=== PATIENT | female | born 1985 | race Caucasian/White ===

== ENCOUNTER 2018-11-21 16:22 | Emergency (ER) | payer OTHER ==
[~2018-11-21] VITALS: Ht 167.6 cm; Wt 60.8 kg
[2018-11-21 17:25] LABS: HEMOGLOBIN 8.3 gm/dL (12.0-15.0); NUCLEATED RBCS 0 /100WBC; RDW-CV 23.8 % (10.5-14.5); WBC 5.2 thou/uL (4.0-11.0)
[2018-11-21 17:27] LABS: HEMATOCRIT 26.4 % (37.0-47.0); MCH 20.2 pg (26.0-34.0); MCHC 31.4 g/dL (28.0-37.0); MCV 64.4 fL (80.0-100.0); PLATELET COUNT* 362 thou/uL (150-400)
[2018-11-21 17:33] LABS: URINE BILIRUBIN NEGATIVE (Negative); URINE BLOOD NEGATIVE (Negative); URINE CLARITY CLEAR; URINE COLOR YELLOW; URINE GLUCOSE-RANDOM NEGATIVE (Negative); URINE KETONES TRACE (Negative); URINE LEUKOCYTES-REFLEX TRACE (Negative); URINE NITRITE-REFLEX NEGATIVE (Negative); URINE PROTEIN TRACE (Negative); URINE SPECIFIC GRAVITY >= 1.030 (1.005-1.030); URINE UROBILINOGEN 0.2 E.U./dl (0.2-1.0)
[2018-11-21 17:34] LABS: CALCIUM 8.7 mg/dL (8.5-10.1); CREATININE 0.7 mg/dL (0.6-1.3); POTASSIUM 3.3 mmol/L (3.5-5.1)
[2018-11-21 17:39] LABS: ALBUMIN 3.5 g/dL (3.4-5.0); TOTAL BILIRUBIN 0.2 mg/dL (<0.1-1.0); TOTAL PROTEIN 7.7 g/dL (6.4-8.2)
[2018-11-21 18:03] LABS: BACTERIA-REFLEX 1-9 Few /HPF (None Seen); CASTS None Seen /LPF (None Seen); CRYSTALS None Seen /LPF (None Seen); SQUAMOUS 0-3 Few /LPF (0-3); URINE RBC 0-2 Rare /HPF (0-2); URINE WBC-REFLEX 0-5 Rare /HPF (0-5)
[2018-11-21 18:06] LABS: ABSOLUTE MONOCYTES 0.3 thou/uL (0.0-1.2); TARGET CELLS 3+
[2018-11-21 18:07] LABS: ANISOCYTOSIS 3+; HYPOCHROMASIA 3+; MICROCYTES 3+; TEARDROPS 1+
[2018-11-21] MEDS ORDERED: IRON325 PO (18:40)
[2018-11-21] MEDS ORDERED: BACTRIM DS TAB1 EACH PO (18:42)
[2018-11-21 19:01] VITALS: BP 106/65
== END 2018-11-21 19:02 | disposition home or self-care (01) ==
LOC: M.ERS 16:22
PROVIDERS: Nurse Practitioner Family
DX: D50.9 Iron deficiency anemia, unspecified (principal); N39.0 Urinary tract infection, site not specified; R42 Dizziness and giddiness; Z88.8 Allergy status to other drugs, medicaments and biological substances

== ENCOUNTER → 2018-12-14 | Outpatient (CLI) | payer OTHER ==
[2018-12-14] VITALS (20 sets, daily range): BP systolic 96–126; BP diastolic 45–86
[~2018-12-14] MED LIST: BACTRIM DS TAB1 EACH PO; IRON325 PO
--- NOTE | 2019-01-03 09:45 | CARD ---
[address] [address] CARDIAC CATH REPORT Name: JULEEDANNI Yang Room: [facility]#: [id number] Admission: 12/14/18 Attend Phys: Chilo Huerta MD, Discharge: Date of : 87 Report #: [id number] THIS REPORT FOR: //name// CC: Chilo Davidnton DATE OF SERVICE: 01/02/2019 CARDIAC PROCEDURE PROCEDURE: Tilt table test. INDICATION: Syncope. PROCEDURE DESCRIPTION: After informed consent was obtained, the patient was brought to the cardiac holding area. Vital signs were obtained at baseline with the patient lying, sitting and standing. The patient was then placed on the tilt table and positioned to the 70-degree head upright position. Vital signs were monitored every 2 minutes including blood pressure and heart rate. After the initial 20-minute phase, the patient was given 0.4 mg of sublingual nitroglycerin. The patient was then monitored for an additional 20 minutes. The patient's baseline blood pressure lying down was 111/71 mmHg with a pulse rate of 58 beats per minute. After standing, the patient's blood pressure was 120/83 with a pulse rate of 63 beats per minute. After the initial head upright tilt, the patient's vital signs remained stable. The patient did note a slight headache. There was no significant drop in blood pressure or change in pulse rate. The patient was then given 0.4 mg of sublingual nitroglycerin after 20 minutes. The patient felt somewhat lightheaded and nauseous. The patient's blood pressure appropriately fell after the administration of nitroglycerin. Approximately 12 minutes into this phase, the patient's blood pressure fell to its lowest at 96/45 mmHg. At that time, her pulse rate was 84 beats per minute. Despite the patient's symptoms, her blood pressure and heart rate remained stable. The tilt table test was terminated without complication. IMPRESSION: 1. History of syncope. 2. Tilt table test shows no evidence of neurocardiogenic syncope. 3. No findings to suggest significant orthostasis. <ELECTRONICALLY SIGNED> By: Berto Sparrow MD, FACC 01/03/19 0945 [id number] Nohemy Sparrow MD, FACC /nt
== END | disposition home or self-care (01) ==
LOC: M.CL 09:00
DX: R55 Syncope and collapse (principal); D50.9 Iron deficiency anemia, unspecified; Z88.8 Allergy status to other drugs, medicaments and biological substances; Z79.899 Other long term (current) drug therapy; Z87.440 Personal history of urinary (tract) infections

== ENCOUNTER 2020-09-25 14:47 | Emergency (ER) | payer OTHER ==
[~2020-09-25] VITALS: Ht 165.1 cm; Wt 65.3 kg
[2020-09-25] MEDS ORDERED: VITAMIN D31250 MCG PO (15:03)
[2020-09-25] MEDS ORDERED: NORCO5 PO (16:16)
[2020-09-25 17:05] VITALS: BP 119/87
== END 2020-09-25 17:10 | disposition home or self-care (01) ==
LOC: M.ERS 14:47
DX: S82.092A Other fracture of left patella, initial encounter for closed fracture (principal); Z88.8 Allergy status to other drugs, medicaments and biological substances; Z79.899 Other long term (current) drug therapy; X50.1XXA Overexertion from prolonged static or awkward postures, initial encounter; Y93.89 Activity, other specified; Y92.89 Other specified places as the place of occurrence of the external cause; Y99.9 Unspecified external cause status

== ENCOUNTER → 2020-09-29 | Outpatient (CLI) | payer OTHER ==
[~2020-09-29] MED LIST changes: +NORCO5 PO; +VITAMIN D31250 MCG PO
== END ==
LOC: M.RAD 14:52
PROVIDERS: ATTEND Nurse Practitioner Family
DX: S79.912A Unspecified injury of left hip, initial encounter (principal); M54.5 Low back pain; X58.XXXA Exposure to other specified factors, initial encounter; Y93.89 Activity, other specified; Y92.89 Other specified places as the place of occurrence of the external cause; Y99.8 Other external cause status